=== PATIENT | female | born 1960 | race Caucasian/White ===

== ENCOUNTER 2018-07-21 16:44 | Emergency (ER) | payer OTHER ==
[~2018-07-21] VITALS: Ht 157.5 cm; Wt 67.1 kg
[2018-07-21] MEDS ORDERED: TOPROL XL50 M1 (17:12)
[2018-07-21] MEDS ORDERED: SIMVASTATIN5 MG (17:12)
== END 2018-07-21 20:23 | disposition home or self-care (01) ==
LOC: ER 16:44
DX: I16.0 Hypertensive urgency (principal); I10 Essential (primary) hypertension

== ENCOUNTER 2018-07-23 11:27 | Emergency (ER) | payer BC ==
[~2018-07-23] VITALS: Ht 157.5 cm; Wt 66.7 kg
[~2018-07-23 11:27] MED LIST: SIMVASTATIN5 MG; TOPROL XL50 M1
== END 2018-07-23 15:48 | disposition home or self-care (01) ==
LOC: ER 11:27
DX: R51 Headache (principal); I10 Essential (primary) hypertension